=== PATIENT | female | born 1950 | race Hispanic/Latino ===

== ENCOUNTER 2017-09-14 12:22 | Outpatient (CLI) | payer MEDICARE | END 2017-09-14 12:23 | disposition home or self-care (01) | LOC: BICMAMMO 12:22 | PROVIDERS: ATTEND Family Medicine | DX: Z12.31 Encounter for screening mammogram for malignant neoplasm of breast (principal); Z80.3 Family history of malignant neoplasm of breast | CPT/HCPCS: 77063; 77067 ==

== ENCOUNTER 2018-09-03 15:36 | Emergency (ER) | payer MEDICARE ==
[2018-09-03] MEDS ORDERED: Ketorolac Tromethamine 30 MG/ML VIAL ONE (16:30)
[2018-09-03] MEDS ORDERED: Lorazepam 2 MG/ML VIAL ONE (16:30)
[2018-09-03] MEDS ORDERED: Fentanyl 100 MCG/2 ML VIAL ONE (16:30)
--- NOTE | 2018-09-03 16:54 | CT ---
CT ABDOMEN AND PELVIS WITHOUT CONTRAST 09/03/18 HISTORY: Abdominal pain and leg pain. COMPARISON: CT 11/12/15. FINDINGS: Lung bases are clear. No pericardial effusion. There is a large gallstone within the lower gallbladde r body. Hepatic cyst in the gallbladder fossa is similar. There is no nephroureterolithiasis or hydroureteronephrosis. No secondary evidence of a recently pass ed stone. Noncontrast evaluation of the spleen and pancreas as well as the adrenal glands are unremarkable. The re are no dilated loops of large or small bowel. No retroperitoneal adenopathy. Advanced facet arthropathy lower lumbar spine. No acute osseous abnormality. IMPRESSION: 1. No nephroureterolithiasis or hydroureteronephrosis. No secondary evidence of recently passed stone. 2. No acute inflammatory process within the abdomen or pelvis. POS: HARI
[2018-09-03 17:07] LABS: #Eosinphils 0.1 thou/uL (0.0-0.7); #Lymphocytes 1.1 thou/uL (1.20-3.40); #Monocytes 0.4 thou/uL (0.11-0.59); #Neutrophils 4.8 thou/uL (1.40-6.50); %Basophils 0.5 % (0.0-1.0); %Eosinophils 1.6 % (0.0-10.0); %Lymphocytes 17.6 % (21.0-51.0); %Monocytes 5.6 % (0.0-10.0); %Neutrophils 74.7 % (42.0-75.0); Hemoglobin 13.5 g/dL (12.0-16.0); Mean Corpuscular HGB CONC 32.1 g/dL (32.0-36.0); Mean Corpuscular Hemoglobin 26.2 pg (27.0-31.0); Mean Corpuscular Volume 81.8 fL (78.0-98.0); Mean Platelet Volume 8.8 fL (7.4-10.4); Platelet Count 165 thou/uL (130-400); RBC Distribution Width 12.9 % (11.5-14.5); Red Blood Cell (RBC) Count 5.13 mill/uL (4.20-5.40); White Blood Cell (WBC) Count 6.4 thou/uL (4.8-10.8)
[2018-09-03 17:28] LABS: ALT (SGPT) 13 U/L (8-55); AST (SGOT) 14 U/L (5-34); Albumin 4.1 g/dL (3.4-4.8); Alkaline Phosphatase 123 U/L (40-150); Anion Gap 14 mmol/L (10-20); BUN (Urea Nitrogen) 16 mg/dL (9.8-20.1); Bilirubin, Total 0.7 mg/dL (0.2-1.2); Calc. Creatinine Clearance 0 mL/min (70-130); Calcium 9.1 mg/dL (7.8-10.44); Carbon Dioxide 20 mmol/L (23-31); Chloride 108 mmol/L (98-107); Estimated GFR-MDRD 67; Globulin 3.3 g/dL (2.4-3.5); Glucose 103 mg/dL (80-115); Lipase 9 U/L (8-78); Potassium 4.2 mmol/L (3.5-5.1); Protein, Total 7.4 g/dL (6.0-8.3); Sodium 138 mmol/L (136-145)
--- NOTE | 2018-09-03 17:31 | ULT ---
ULTRASOUND LEFT LOWER EXTREMITY VENOUS DOPPLER: 09/03/18 HISTORY: Lower extremity pain and edema. COMPARISON: Doppler 11/11/15. FINDINGS: Real time pedraza scale, color doppler and spectral analysis of the left lower extremity venous system w as performed. The common femoral, femoral, proximal portion of the greater saphenous and deep femoral veins as well as the popliteal and posterior tibial veins are interrogated. Poor visualization of posterior tibial veins. Remainder of the veins have normal flow, augmentation a nd compression. IMPRESSION: No deep venous thrombosis. POS: HARI
[2018-09-03] MEDS ORDERED: Dexamethasone 4 mg/ml Vial ONE (17:42)
== END 2018-09-03 18:23 | disposition home or self-care (01) ==
LOC: ERS 15:36
DX: M54.10 Radiculopathy, site unspecified (principal); I10 Essential (primary) hypertension
CPT/HCPCS: 36415; 74176; 80053; 83690; 85025; 93005; 96374; 96375; J1100; J1885; J2060; J3010

== ENCOUNTER 2018-10-13 09:56 | Outpatient (CLI) | payer MEDICARE ==
--- NOTE | 2018-10-17 13:25 | MMO ---
Bilateral MAMMO Bilat Screen [facility]. CLINICAL HISTORY: Patient is 68 years old and is seen for screening. The patient has the following family history of breast cancer: mother, at age 70 and cousin female. The patient has a history of other cancer in 2000. VIEWS: The views performed were: bilateral craniocaudal with tomosynthesis and bilateral mediolateral oblique with tomosynthesis. FILMS COMPARED: The present examination has been compared to prior imaging studies performed at [facility] on 08/07/2005, 12/31/2006, 04/23/2009, 04/29/2011, 06/30/2012, 04/12/2015, 05/04/2016 and 09/14/2017. MAMMOGRAM FINDINGS: There are scattered fibroglandular densities. There are new calcifications with grouped or clustered distribution seen in the posterior central region of the left breast. In the right breast, there are no suspicious masses, calcifications or areas of architectural distortion. IMPRESSION: NEW CALCIFICATIONS IN THE LEFT BREAST REQUIRE ADDITIONAL EVALUATION. MAGNIFICATION VIEWS ARE RECOMMENDED. THE RESULTS OF THIS EXAM WERE SENT TO THE PATIENT. ACR BI-RADS Category 0 - Incomplete: Need additional imaging evaluation. [facility] will notify the patient of the need for additional imaging services. MAMMOGRAPHY NOTE: 1. A negative mammogram report should not delay a biopsy if a dominant of clinically suspicious mass is present. 2. Approximately 10% to 15% of breast cancers are not detected by mammography. 3. Adenosis and dense breasts may obscure an underlying neoplasm.
== END 2018-10-13 09:57 | disposition home or self-care (01) ==
LOC: BICMAMMO 09:56
PROVIDERS: ATTEND Family Medicine
DX: Z12.31 Encounter for screening mammogram for malignant neoplasm of breast (principal); R92.1 Mammographic calcification found on diagnostic imaging of breast; Z80.3 Family history of malignant neoplasm of breast; Z85.89 Personal history of malignant neoplasm of other organs and systems
CPT/HCPCS: 77063; 77067

== ENCOUNTER 2018-10-18 11:13 | Outpatient (CLI) | payer MEDICARE ==
--- NOTE | 2018-10-19 16:26 | MMO ---
Left Breast MAMMO Unilat Diag [facility]. CLINICAL HISTORY: Patient is 68 years old and is seen for diagnostic exam. VIEWS: The views performed were: . FILMS COMPARED: The present examination has been compared to prior imaging studies performed at [facility] on 08/07/2005, 12/31/2006, 04/23/2009, 04/29/2011, 06/30/2012, 04/12/2015, 05/04/2016, 09/14/2017 and 10/03/2018. MAMMOGRAM FINDINGS: There are scattered fibroglandular densities. Exam is limited due to a left sided paralysis. The calcs are not well seen on ML views. Few calcs on the mag CC view appear benign. The others are probably benign. IMPRESSION: FINDING IN THE LEFT BREAST IS PROBABLY BENIGN. FOLLOW-UP IN 6 MONTHS IS RECOMMENDED. THE RESULTS OF THIS EXAM WERE SENT TO THE PATIENT. ACR BI-RADS Category 3 - Probably benign finding - short interval follow-up suggested. [facility] will notify the patient of the need for additional imaging services. MAMMOGRAPHY NOTE: 1. A negative mammogram report should not delay a biopsy if a dominant of clinically suspicious mass is present. 2. Approximately 10% to 15% of breast cancers are not detected by mammography. 3. Adenosis and dense breasts may obscure an underlying neoplasm.
== END 2018-10-18 11:14 | disposition home or self-care (01) ==
LOC: BICMAMMO 11:13
PROVIDERS: ATTEND Family Medicine
DX: R92.1 Mammographic calcification found on diagnostic imaging of breast (principal)
CPT/HCPCS: 77065; G0279

== ENCOUNTER 2019-07-14 09:40 | Outpatient (CLI) | payer MEDICARE ==
--- NOTE | 2019-07-14 11:14 | MMO ---
Left Breast MAMMO Unilat Diag [facility]. CLINICAL HISTORY: Patient is 69 years old and is seen for diagnostic exam. The patient has the following family history of breast cancer: mother, at age 70 and cousin female. The patient has a history of other cancer in 2000. VIEWS: The views performed were: left craniocaudal with tomosynthesis; left mediolateral oblique with tomosynthesis; and left mediolateral with tomosynthesis. FILMS COMPARED: The present examination has been compared to prior imaging studies performed at [facility] on 05/04/2016, 09/14/2017, 10/03/2018 and 10/18/2018. This study has been interpreted with the assistance of computer-aided detection. MAMMOGRAM FINDINGS: There are scattered fibroglandular densities. There are amorphous or indistinct and fine pleomorphic calcifications seen in the posterior central region of the left breast. IMPRESSION: CALCIFICATIONS IN THE LEFT BREAST ARE SUSPICIOUS. A STEREOTACTIC BREAST BIOPSY IS RECOMMENDED. THE PATIENT WILL FOLLOW UP CLINICALLY WITH DR. ASTUDILLO REGARDING FURTHER OPTIONS. STEREOTACTIC BIOPSY CAN BE SCHEDULED WITH THE [facility] MAMMOGRAPHY DEPARTMENT. THE RESULTS OF THIS EXAM WERE SENT TO THE PATIENT. ACR BI-RADS Category 4 - Suspicious abnormality - biopsy should be considered MAMMOGRAPHY NOTE: 1. A negative mammogram report should not delay a biopsy if a dominant of clinically suspicious mass is present. 2. Approximately 10% to 15% of breast cancers are not detected by mammography. 3. Adenosis and dense breasts may obscure an underlying neoplasm. Reported by: SHOBHA MCKEON MD Electonically Signed: [id number]
== END 2019-07-14 09:41 | disposition home or self-care (01) ==
LOC: BICMAMMO 09:40
PROVIDERS: ATTEND Family Medicine
DX: R92.8 Other abnormal and inconclusive findings on diagnostic imaging of breast (principal); R92.1 Mammographic calcification found on diagnostic imaging of breast
CPT/HCPCS: 77065; G0279

== ENCOUNTER → 2019-08-11 | Day surgery (SDC) | payer MEDICARE ==
[2019-08-10 14:17] VITALS: BMI 28.3
--- NOTE | 2019-08-11 14:51 | MMO ---
NEEDLE LOCALIZATION FOR SURGICAL EXCISIONAL BIOPSY OF LEFT BREAST CALCIFICATIONS: Date: 08/11/2019 HISTORY: Suspicious calcification left breast. COMPARISON: 09/28/2018 and 07/14/2019. FINDINGS/IMPRESSION: Unsuccessful needle localization of left breast calcifications. Given breast size, the calcifications could not be adequately reached with a 10 cm [place] needle in a CC approach. Therefore, the patient w ill be rescheduled for a needle localization with a 15 cm [place] needle and a medial approach should b e used. Results of study were conveyed to the patient, as well as Dr. Erwin, on 08/11/2019 at 1418 hours. CODE CR. POS: OFF
== END ==
LOC: SDC 07:03
PROVIDERS: ATTEND Surgery
PROC: 0HB5XZX Excision of Chest Skin, External Approach, Diagnostic (ICD-10-PCS; principal; 2019-08-11)
DX: R92.8 Other abnormal and inconclusive findings on diagnostic imaging of breast (principal)
CPT/HCPCS: 19281

== ENCOUNTER 2019-12-01 06:58 | Outpatient (CLI) | payer MEDICARE, OTHER ==
[2019-12-01 13:10] LABS: #Eosinphils 0.1 thou/uL (0.0-0.7); #Lymphocytes 1.1 thou/uL (1.20-3.40); #Monocytes 0.3 thou/uL (0.11-0.59); #Neutrophils 4.3 thou/uL (1.40-6.50); %Eosinophils 1.3 % (0.0-10.0); %Lymphocytes 18.5 % (21.0-51.0); %Monocytes 4.9 % (0.0-10.0); %Neutrophils 75.3 % (42.0-75.0); Hemoglobin 13.9 g/dL (12.0-16.0); Mean Corpuscular HGB CONC 31.5 g/dL (32.0-36.0); Mean Corpuscular Hemoglobin 25.6 pg (27.0-31.0); Mean Corpuscular Volume 81.2 fL (78.0-98.0); Platelet Count 164 thou/uL (130-400); RBC Distribution Width 13.9 % (11.5-14.5); Red Blood Cell (RBC) Count 5.44 mill/uL (4.20-5.40); White Blood Cell (WBC) Count 5.7 thou/uL (4.8-10.8)
[2019-12-01 13:32] LABS: Anion Gap 14 mmol/L (10-20); BUN (Urea Nitrogen) 10 mg/dL (9.8-20.1); Calc. Creatinine Clearance 0 mL/min (70-130); Calcium 8.9 mg/dL (7.8-10.44); Carbon Dioxide 23 mmol/L (23-31); Chloride 108 mmol/L (98-107); Estimated GFR-MDRD 70; Glucose 115 mg/dL (80-115); Potassium 3.8 mmol/L (3.5-5.1); Sodium 141 mmol/L (136-145)
[2019-12-01 18:22] LABS: SARS-CoV-2 MS2 Positive; SARS-CoV-2 N Gene Negative; SARS-CoV-2 S Gene Negative; SARS-CoV-2 orf1ab Negative
--- NOTE | 2019-12-03 16:37 | EKG ---
Test Reason : PREOP Blood Pressure : / mmHG Vent. Rate : 066 BPM Atrial Rate : 066 BPM P-R Int : 208 ms QRS Dur : 088 ms QT Int : 438 ms P-R-T Axes : 008 024 026 degrees QTc Int : 459 ms Normal sinus rhythm Normal ECG When compared with ECG of 03-SEP-2018 16:15, No significant change was found Confirmed by DINA LUNA (2) on 12/03/2019 4:36:46 PM Referred By: NANCY Confirmed By:DINA LUNA
== END 2019-12-01 06:59 | disposition home or self-care (01) ==
LOC: LABBT 06:58
PROVIDERS: ATTEND Surgery
DX: Z01.818 Encounter for other preprocedural examination (principal); Z11.59 Encounter for screening for other viral diseases; D05.12 Intraductal carcinoma in situ of left breast
CPT/HCPCS: 80048; 85025; 93005; U0003; 87635; 93010

== ENCOUNTER 2019-12-06 06:58 | Day surgery (SDC) | payer MEDICARE ==
[2019-12-06] MEDS ORDERED: Bupivacaine 0.25% HCL 30 ML VIAL ONE (09:28)
[2019-12-06] MEDS ORDERED: Lidocaine 1% w/Epinephrine 1:100K 20 ML VIAL ONE (09:28)
[2019-12-06] MEDS ORDERED: Fentanyl 100 MCG/2 ML VIAL ONE ×2 (09:33→11:32)
[2019-12-06] MEDS ORDERED: Famotidine/PF 20 mg/2ml Vial ONE (09:33)
--- NOTE | 2019-12-06 11:17 | MMO ---
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 TECHNIQUE: Signed informed consent obtained. Left breast placed in true lateral compression with fenestrated pad dle. Of the 2 postbiopsy clips, the more posteriorly and inferiorly located clip (cylindrical shaped) was targeted. Medial approach. Skin of medial breast prepared and draped in usual sterile fas hion. 25-gauge needle used to apply buffered lidocaine superficially and deeply. 12.5 cm 20-gauge [place] needle advanced. Breast then compressed in LCC projection. Wire deployed with needle left in pl stephanie. Patient tolerated procedure well. No complications. FINDINGS: Needle and wire position are in satisfactory location close to the targeted clip, at the far posterio r edge of the left breast. Subsequent specimen radiograph demonstrates the targeted clip. IMPRESSION: Successful mammographically guided left breast needle localization.
--- NOTE | 2019-12-06 11:18 | MMO ---
Radiograph surgical specimen: DATE: 12/06/2019 HISTORY: 69-year-old female with ductal carcinoma in situ of the left breast. FINDINGS: The specimen contains the targeted cylindrical postbiopsy clip and [place] wire. IMPRESSION: Successful surgical excisional biopsy.
[2019-12-06] MEDS ORDERED: Glycopyrrolate 0.2 MG/ML 5 ML SYRINGE ONE (11:27)
[2019-12-06] MEDS ORDERED: Succinylcholine Chloride 20 MG/ML 10 ml SYRINGE FS ONE (11:27)
[2019-12-06] MEDS ORDERED: Dexamethasone 20 MG/5 ML VIAL ONE (11:27)
[2019-12-06] MEDS ORDERED: Ketorolac Tromethamine 30 MG/ML VIAL ONE (11:27)
[2019-12-06] MEDS ORDERED: Metoclopramide HCl 10 MG/2 ML VIAL ONE (11:27)
[2019-12-06] MEDS ORDERED: Lidocaine 1% PF 5 ML VIAL ONE (11:27)
[2019-12-06] MEDS ORDERED: PROPOFOL 200 MG/20 ML VIAL ONE (11:27)
[2019-12-06] MEDS ORDERED: Ondansetron PF 4 MG/2 ML Vial ONE (11:27)
[2019-12-06] MEDS ORDERED: HYDROcodone/Acetaminophen 5/325 mg Tablet ONE (14:24)
--- NOTE | 2019-12-08 11:54 | PDOC.OP ---
Operative Note - Operative Note Operative Note: PROCEDURE: Left breast needle localized excisional biopsy SURGEON: Theo Erwin M.D. DATE: 12/06/2019 PREOPERATIVE DIAGNOSIS: Ductal carcinoma in situ of the left breast POSTOPERATIVE DIAGNOSIS: Ductal carcinoma in situ of the left breast HISTORY: Patient with an abnormal mammogram. She was referred to another center for stereotactic biopsy due to positioning difficulties due to hemiplegia resulting from a past stroke. This revealed DCIS and needle localized excisional biopsy was recommended. An extra long needle localization device had to be ordered due to the position very deep in the central breast. PROCEDURE IN DETAIL: After informed consent was obtained the patient was taken to the operating room and placed in the supine position. General anesthesia was administered and the patient was positioned, prepped and draped. The needle localization mammograms had been reviewed preoperatively with the radiologist, and the biopsy clip in question was located deep in the central posterior breast just anterior to the wire. The wire was hubbed at 11 cm at the skin, traveling from medial to lateral. Local anesthesia was infused to the skin and subcutaneous tissues overlying the central area of the wire and dissection carried down to the wire which was then identified at the 5 cm catherine. Dissection was then carried out around the distal end of the wire, leaving a generous anterior margin. At no point during the dissection was the distal wire exposed. The specimen was resected and marked for orientation with a long medial, short superior, and looped superficial suture. The specimen was sent to radiology and the clip was confirmed to be within the specimen. The wound was irrigated and hemostasis obtained using Bovie electrocautery. Additional local anesthesia was infused circumferentially for postoperative pain control. The subcutaneous tissues were reapproximated with a running 3-0 Monocryl suture and additional local anesthesia infused into the biopsy cavity. The skin was then closed with a running 4-0 subcuticular Monocryl suture. Dermabond dressings were placed to both incisions and once this was dry, fluffs compression dressings were placed and secured to the skin with tape. The patient was extubated and taken to the recovery room in good condition. Estimated blood loss was minimal. There were no complications. Specimen is left breast mass.
== END 2019-12-06 15:16 | disposition home or self-care (01) ==
LOC: SDC 06:58 → EEVIPCON 11:30 → SDC 15:16
PROVIDERS: ATTEND Surgery
PROC: 0H9U3ZX Drainage of Left Breast, Percutaneous Approach, Diagnostic (ICD-10-PCS; principal; 2019-12-06)
DX: D05.12 Intraductal carcinoma in situ of left breast (principal); I10 Essential (primary) hypertension; E78.00 Pure hypercholesterolemia, unspecified; Z79.899 Other long term (current) drug therapy
CPT/HCPCS: 19281; 76098; 88307; J0690; J1100; J1885; J2001; J2405; J2704; J2765; J3010; S0020; S0028

== ENCOUNTER 2020-09-26 09:21 | Outpatient (CLI) | payer MEDICARE | END 2020-09-26 09:22 | disposition home or self-care (01) | LOC: BICMAMMO 09:21 | PROVIDERS: ATTEND Surgery | DX: Z09 Encounter for follow-up examination after completed treatment for conditions other than malignant neoplasm (principal); Z86.000 Personal history of in-situ neoplasm of breast | CPT/HCPCS: 77066; G0279 ==

== ENCOUNTER 2021-10-24 08:05 | Outpatient (CLI) | payer MEDICARE | END 2021-10-24 08:06 | disposition home or self-care (01) | LOC: BICMAMMO 08:05 | PROVIDERS: ATTEND Surgery | DX: D05.12 Intraductal carcinoma in situ of left breast (principal) | CPT/HCPCS: 77066; G0279 ==

== ENCOUNTER 2022-06-01 10:19 | Outpatient (CLI) | payer MEDICARE, OTHER | END 2022-06-01 10:20 | disposition home or self-care (01) | LOC: BICMAMMO 10:19 | PROVIDERS: ATTEND Internal Medicine Hematology & Oncology | DX: Z13.820 Encounter for screening for osteoporosis (principal); C50.812 Malignant neoplasm of overlapping sites of left female breast; T38.6X5A Adverse effect of antigonadotrophins, antiestrogens, antiandrogens, not elsewhere classified, initial encounter; M85.89 Other specified disorders of bone density and structure, multiple sites | CPT/HCPCS: 77080 ==

== ENCOUNTER 2023-03-02 09:22 | Outpatient (CLI) | payer OTHER | END 2023-03-02 09:23 | disposition home or self-care (01) | LOC: ULT 09:22 | PROVIDERS: ATTEND Family Medicine | DX: I80.202 Phlebitis and thrombophlebitis of unspecified deep vessels of left lower extremity (principal) ==

== ENCOUNTER 2023-06-13 22:13 | Inpatient (IN) | payer OTHER ==
[2023-06-13 23:54] LABS: SARS-CoV-2 NAA Rapid Test Not Detected (NotDetected)
[2023-06-14 00:07] LABS: Hematocrit 40.8 % (36.0-47.0); Hemoglobin 12.7 g/dL (12.0-16.0); Mean Corpuscular HGB CONC 31.1 g/dL (32.0-36.0); Mean Corpuscular Hemoglobin 24.7 pg (27.0-31.0); Mean Corpuscular Volume 79.2 fl (78.0-98.0); Mean Platelet Volume 11.3 fL (7.4-10.4); Platelet Count 152 10x3/uL (130-400); RBC Distribution Width 15.5 % (11.5-14.5); Red Blood Cell (RBC) Count 5.15 mill/uL (4.20-5.40); White Blood Cell (WBC) Count 9.6 10x3/uL (4.8-10.8)
[2023-06-14 00:10] LABS: Delete Auto Diff?? YES; Manual Diff?? YES
[2023-06-14 00:30] LABS: ALT (SGPT) 97 U/L (8-55); AST (SGOT) 132 U/L (5-34); Albumin 3.4 g/dL (3.4-4.8); Alkaline Phosphatase 79 U/L (40-110); Anion Gap 17 mmol/L (10-20); BUN (Urea Nitrogen) 32 mg/dL (9.8-20.1); Calc. Creatinine Clearance 0 mL/min (70-130); Calcium 8.7 mg/dL (7.8-10.44); Carbon Dioxide 16 mmol/L (23-31); Chloride 106 mmol/L (98-107); Estimated GFR 32; Globulin 4.2 g/dL (2.4-3.5); Glucose 143 mg/dL (83-110); Potassium 3.2 mmol/L (3.5-5.1); Protein, Total 7.6 g/dL (5.8-8.1); Sodium 136 mmol/L (136-145)
[2023-06-14 00:34] LABS: Band 34 % (5-11); CellaVision Operator ID lab.abc; Eosinophils 1 % (0-10); Large Platelets 1.9 % (0-5); Lymphocytes 5 % (21-51); Metamyelocyte 3 % (0-0); Monocytes 3 % (0-10); Neutrophil 55 % (42-75); Platelet Adequacy Comment Platelets Normal; RBC Morphology Within Normal Limits; Smudge Cells 11.5 %; Total Cell Count 104
[2023-06-14] MEDS ORDERED: Furosemide 40 MG/4 ML VIAL ONE (00:58)
[2023-06-14] MEDS ORDERED: Sodium Chloride 0.9% 100 ML ONE (01:10)
[2023-06-14] MEDS ORDERED: Cefepime 2 GM VIAL ONE (01:10)
[2023-06-14 01:11] LABS: Troponin I 0.995 ng/mL (< 0.028)
[2023-06-14] MEDS ORDERED: Vancomycin (BATCH) 1.5 GM in Premix 1 BAG IVPB SCH (01:30)
[2023-06-14] MEDS ORDERED: Ondansetron ODT 4 MG TAB SL PRN (01:45)
[2023-06-14] MEDS ORDERED: Ondansetron PF 4 MG/2 ML Vial IVP PRN (01:45)
[2023-06-14] MEDS ORDERED: Acetaminophen 325 MG TAB PO PRN (01:45)
[2023-06-14] MEDS ORDERED: Calcium Carbonate 500 MG ChewTAB PO PRN (01:59)
[2023-06-14] MEDS ORDERED: Senokot S 8.6-50 MG TAB PO PRN (01:59)
[2023-06-14] MEDS ORDERED: Potassium Chloride 20 MEQ TAB PO SCH (02:00)
[2023-06-14] MEDS ORDERED: Aspirin Chewable 81 MG TAB ONE (02:13)
[2023-06-14 02:35] LABS: Magnesium 1.6 mg/dL (1.6-2.6)
[2023-06-14 02:57] LABS: Bacteria/HPF 4+ HPF (None Seen); Bilirubin Negative (Negative); Blood, Urine 1+ (Negative); CAUTI Indications for Culture Dysuria,urgency,freq; Clarity Turbid (Clear); Glucose, Urine (Dipstick) Normal (Negative); Ketone, Urine Negative (Negative); Leukocyte 250 Leu/uL (Negative); Nitrite Negative (Negative); Protein, Urine (Dipstick) 10 mg/dL (Neg-Trace); RBC/HPF 0-3 HPF (0-3); Specific Gravity, Urine 1.016 (1.002-1.036); Squamous Epithelial 0-3 HPF (0-3); Urobilinogen Normal mg/dL (Less than 2)
[2023-06-14 02:58] LABS: Urine Culture Reflex Yes Yes
[2023-06-14] MEDS ORDERED: Magnesium 2 GM/50 ML(in water) 2 GM in Premix 1 BAG IVPB SCH (03:00)
[2023-06-14 03:03] LABS: Actual Bicarbonate (HCO3v) 16.8 mEq/L (22-28); Base Excess -7.2 mEq/L (-2.0 to +3.0); Calcium, Ionized (venous) 1.04 mmol/L (1.16-1.32); Chloride (VBG) 105 mmol/L (98-106); Hematocrit-VBG 37 % (36.0-47.0); Hemoglobin (Hb) 12.7 g/dL (11.7-16.1); Potassium (VBG) 3.23 mmol/L (3.70-5.30); Sodium 136 mmol/L (133-146); pH (venous) 7.372 (7.32-7.43)
[2023-06-14 03:46] LABS: Critical Call Chem Troponin I RESULT DECREASING; Troponin I 0.884 ng/mL (< 0.028)
[2023-06-14] MEDS: Lactated Ringer's 1,000 ML IV SCH ×3 (04:04→18:00)
[2023-06-14 06:31] LABS: Lactic Acid 3.5 mmol/L (0.5-2.2)
[2023-06-14 06:50] LABS: Hematocrit 35.9 % (36.0-47.0); Hemoglobin 11.5 g/dL (12.0-16.0); Mean Corpuscular Hemoglobin 24.9 pg (27.0-31.0); Mean Corpuscular Volume 77.9 fl (78.0-98.0); Mean Platelet Volume 11.1 fL (7.4-10.4); Platelet Count 145 10x3/uL (130-400); RBC Distribution Width 15.5 % (11.5-14.5); Red Blood Cell (RBC) Count 4.61 mill/uL (4.20-5.40); White Blood Cell (WBC) Count 10.4 10x3/uL (4.8-10.8)
[2023-06-14 06:51] LABS: Delete Auto Diff?? YES; Manual Diff?? YES
[2023-06-14 07:18] LABS: ALT (SGPT) 78 U/L (8-55); AST (SGOT) 100 U/L (5-34); Albumin 2.9 g/dL (3.4-4.8); Alkaline Phosphatase 65 U/L (40-110); Anion Gap 15 mmol/L (10-20); BUN (Urea Nitrogen) 36 mg/dL (9.8-20.1); Bilirubin, Total 0.8 mg/dL (0.2-1.2); Calc. Creatinine Clearance 46 mL/min (70-130); Calcium 8.3 mg/dL (7.8-10.44); Carbon Dioxide 19 mmol/L (23-31); Chloride 106 mmol/L (98-107); Cholesterol 110 mg/dl (< 200 Desired); Estimated GFR 33; Globulin 3.6 g/dL (2.4-3.5); Glucose 123 mg/dL (83-110); HDL Cholesterol 37 mg/dL (>60 Neg Risk); LDL Cholesterol, Calculated 42 mg/dL; Magnesium 2.7 mg/dL (1.6-2.6); Potassium 3.1 mmol/L (3.5-5.1); Protein, Total 6.5 g/dL (5.8-8.1); Sodium 137 mmol/L (136-145); Triglycerides 157 mg/dL (Less than 150)
[2023-06-14 07:23] LABS: Band 52 % (5-11); CellaVision Operator ID LAB.GE; Large Platelets 3.9 % (0-5); Lymphocytes 4 % (21-51); Macrocytosis SLIGHT = 6-15 cells HPF (0-5); Metamyelocyte 12 % (0-0); Monocytes 5 % (0-10); Neutrophil 28 % (42-75); Ovalocytes SLIGHT = 2-5 cells HPF (0-1); Platelet Adequacy Comment Platelets Normal; Polychromasia SLIGHT = 2-3 cells HPF (0-2); Total Cell Count 103; Vacuoles SLIGHT
[2023-06-14 08:08] LABS: Troponin I 0.672 ng/mL (< 0.028)
[2023-06-14] MEDS ORDERED: FLU VACC QS2023(65UP)/MF59C/PF 60 MCG/0.5 ML SYRINGE IM ONE (09:00)
[2023-06-14] MEDS: NIFEdipine XL 60 MG ER.TAB PO SCH (10:38)
[2023-06-14] MEDS: Anastrozole 1 MG TAB PO SCH (10:38)
[2023-06-14] MEDS: Atenolol 50 MG TAB PO SCH (10:38)
[2023-06-14] MEDS: Aspirin Chewable 81 MG TAB PO SCH (10:38)
[2023-06-14] MEDS: Atorvastatin Calcium 20 MG TAB PO SCH (10:38)
[2023-06-14] MEDS: Cefepime 2 GM in Sodium Chloride 0.9% 100 ML IVPB SCH (12:40)
[2023-06-15] MEDS: Cefepime 2 GM in Sodium Chloride 0.9% 100 ML IVPB SCH (00:10)
[2023-06-15] MEDS: Lactated Ringer's 1,000 ML IV SCH ×2 (02:56→16:07)
[2023-06-15] MEDS ORDERED: Vancomycin 1 GM in Premix 1 BAG IVPB SCH (03:00)
[2023-06-15 04:36] LABS: Hematocrit 31.8 % (36.0-47.0); Hemoglobin 10.3 g/dL (12.0-16.0); Mean Corpuscular HGB CONC 32.4 g/dL (32.0-36.0); Mean Corpuscular Hemoglobin 24.8 pg (27.0-31.0); Mean Corpuscular Volume 76.6 fl (78.0-98.0); Platelet Count 109 10x3/uL (130-400); RBC Distribution Width 15.7 % (11.5-14.5); Red Blood Cell (RBC) Count 4.15 mill/uL (4.20-5.40); White Blood Cell (WBC) Count 12.8 10x3/uL (4.8-10.8)
[2023-06-15 05:11] LABS: ALT (SGPT) 55 U/L (8-55); AST (SGOT) 57 U/L (5-34); Albumin 2.6 g/dL (3.4-4.8); Alkaline Phosphatase 70 U/L (40-110); Anion Gap 13 mmol/L (10-20); BUN (Urea Nitrogen) 37 mg/dL (9.8-20.1); Bilirubin, Total 0.9 mg/dL (0.2-1.2); Calc. Creatinine Clearance 63 mL/min (70-130); Calcium 8.3 mg/dL (7.8-10.44); Carbon Dioxide 17 mmol/L (23-31); Chloride 109 mmol/L (98-107); Estimated GFR 47; Globulin 3.7 g/dL (2.4-3.5); Glucose 123 mg/dL (83-110); Magnesium 2.3 mg/dL (1.6-2.6); Potassium 3.5 mmol/L (3.5-5.1); Protein, Total 6.3 g/dL (5.8-8.1); Sodium 135 mmol/L (136-145)
[2023-06-15 05:30] LABS: Delete Auto Diff?? YES; Manual Diff?? YES
[2023-06-15 06:28] LABS: Band 33 % (5-11); CellaVision Operator ID LAB.GE; Dohle Bodies SLIGHT; Lymphocytes 4 % (21-51); Microcytosis SLIGHT = 6-15 cells HPF (0-5); Neutrophil 63 % (42-75); Ovalocytes SLIGHT = 2-5 cells HPF (0-1); Platelet Adequacy Comment Platelets Decreased; Polychromasia SLIGHT = 2-3 cells HPF (0-2); Total Cell Count 103
[2023-06-15] MEDS: Aspirin Chewable 81 MG TAB PO SCH (10:06)
[2023-06-15] MEDS: Atenolol 50 MG TAB PO SCH (10:06)
[2023-06-15] MEDS: Atorvastatin Calcium 20 MG TAB PO SCH (10:07)
[2023-06-15] MEDS: Anastrozole 1 MG TAB PO SCH (10:07)
[2023-06-15] MEDS: NIFEdipine XL 60 MG ER.TAB PO SCH (10:07)
[2023-06-15] MEDS: Cefepime 1 GM in Sodium Chloride 0.9% 100 ML IVPB SCH (12:34)
[2023-06-15] MEDS: Sacubitril 24MG/Valsartan 26 MG TAB PO SCH (20:15)
[2023-06-16] MEDS: Cefepime 1 GM in Sodium Chloride 0.9% 100 ML IVPB SCH ×2 (01:35→15:01)
[2023-06-16 02:19] LABS: Hematocrit 29.7 % (36.0-47.0); Hemoglobin 9.8 g/dL (12.0-16.0); Mean Corpuscular Hemoglobin 25.1 pg (27.0-31.0); Mean Platelet Volume 12.4 fL (7.4-10.4); Platelet Count 97 10x3/uL (130-400); RBC Distribution Width 15.6 % (11.5-14.5); Red Blood Cell (RBC) Count 3.91 mill/uL (4.20-5.40); White Blood Cell (WBC) Count 14.8 10x3/uL (4.8-10.8)
[2023-06-16 02:26] LABS: Delete Auto Diff?? YES; Manual Diff?? YES
[2023-06-16 02:37] LABS: Vancomycin, Trough 8.1 ug/mL
[2023-06-16 02:48] LABS: Band 1 % (5-11); CellaVision Operator ID lab.abc; Lymphocytes 3 % (21-51); Microcytosis SLIGHT = 6-15 cells HPF (0-5); Monocytes 4 % (0-10); Neutrophil 92 % (42-75); Platelet Adequacy Comment Platelets Decreased; Smudge Cells 13.7 %; Total Cell Count 102
[2023-06-16] MEDS: Vancomycin (BATCH) 1.5 GM in Premix 1 BAG IVPB SCH (03:01)
[2023-06-16 03:10] LABS: ALT (SGPT) 40 U/L (8-55); AST (SGOT) 37 U/L (5-34); Albumin 2.2 g/dL (3.4-4.8); Alkaline Phosphatase 82 U/L (40-110); Anion Gap 14 mmol/L (10-20); BUN (Urea Nitrogen) 32 mg/dL (9.8-20.1); Bilirubin, Total 1.1 mg/dL (0.2-1.2); Calc. Creatinine Clearance 82 mL/min (70-130); Carbon Dioxide 17 mmol/L (23-31); Chloride 106 mmol/L (98-107); Estimated GFR 63; Globulin 3.7 g/dL (2.4-3.5); Glucose 135 mg/dL (83-110); Magnesium 2.3 mg/dL (1.6-2.6); Potassium 3.1 mmol/L (3.5-5.1); Protein, Total 5.9 g/dL (5.8-8.1); Sodium 134 mmol/L (136-145)
[2023-06-16] MEDS: Lactated Ringer's 1,000 ML IV SCH (06:25)
[2023-06-16] MEDS ORDERED: Potassium Chloride 20 MEQ TAB PO SCH (07:00)
[2023-06-16] MEDS: Atorvastatin Calcium 20 MG TAB PO SCH (09:15)
[2023-06-16] MEDS: Sacubitril 24MG/Valsartan 26 MG TAB PO SCH ×2 (09:15→21:36)
[2023-06-16] MEDS: Aspirin Chewable 81 MG TAB PO SCH (09:15)
[2023-06-16] MEDS: Anastrozole 1 MG TAB PO SCH (09:15)
[2023-06-16] MEDS: Aquaphor 3.5 oz 99 GM JAR TOP SCH (09:16)
[2023-06-17] MEDS: Cefepime 1 GM in Sodium Chloride 0.9% 100 ML IVPB SCH (00:25)
[2023-06-17] MEDS: Vancomycin (BATCH) 1.5 GM in Premix 1 BAG IVPB SCH (03:10)
[2023-06-17 04:25] LABS: Hematocrit 29.2 % (36.0-47.0); Hemoglobin 9.6 g/dL (12.0-16.0); Mean Corpuscular HGB CONC 32.9 g/dL (32.0-36.0); Mean Corpuscular Hemoglobin 24.6 pg (27.0-31.0); Mean Corpuscular Volume 74.9 fl (78.0-98.0); RBC Distribution Width 15.9 % (11.5-14.5); White Blood Cell (WBC) Count 13.3 10x3/uL (4.8-10.8)
[2023-06-17 04:44] LABS: ALT (SGPT) 42 U/L (8-55); AST (SGOT) 65 U/L (5-34); Alkaline Phosphatase 94 U/L (40-110); Anion Gap 11 mmol/L (10-20); BUN (Urea Nitrogen) 26 mg/dL (9.8-20.1); Bilirubin, Total 1.1 mg/dL (0.2-1.2); Calc. Creatinine Clearance 107 mL/min (70-130); Calcium 7.9 mg/dL (7.8-10.44); Carbon Dioxide 18 mmol/L (23-31); Chloride 109 mmol/L (98-107); Estimated GFR 84; Globulin 3.5 g/dL (2.4-3.5); Glucose 139 mg/dL (83-110); Magnesium 2.2 mg/dL (1.6-2.6); Potassium 3.2 mmol/L (3.5-5.1); Protein, Total 5.5 g/dL (5.8-8.1); Sodium 135 mmol/L (136-145)
[2023-06-17 04:49] LABS: Delete Auto Diff?? YES; Manual Diff?? YES; Platelet Count 87 10x3/uL (130-400)
[2023-06-17 06:37] LABS: Anisocytosis SLIGHT = 6-15 cells HPF (0-5); Band 10 % (5-11); Burr Cells SLIGHT = 2-5 cells HPF (0-1); CellaVision Operator ID LAB.JMM; Lymphocytes 5 % (21-51); Macrocytosis SLIGHT = 6-15 cells HPF (0-5); Monocytes 3 % (0-10); Neutrophil 82 % (42-75); Platelet Adequacy Comment Platelets Decreased; Polychromasia SLIGHT = 2-3 cells HPF (0-2); Total Cell Count 100
[2023-06-17] MEDS ORDERED: Potassium Chloride 20 MEQ TAB PO SCH (07:15)
[2023-06-17] MEDS: Aspirin Chewable 81 MG TAB PO SCH (08:52)
[2023-06-17] MEDS: Anastrozole 1 MG TAB PO SCH (08:52)
[2023-06-17] MEDS: Empagliflozin 10 MG TAB PO SCH (08:52)
[2023-06-17] MEDS: Sacubitril 24MG/Valsartan 26 MG TAB PO SCH ×2 (08:53→20:56)
[2023-06-17] MEDS: Atorvastatin Calcium 20 MG TAB PO SCH (08:53)
[2023-06-17] MEDS: Aquaphor 3.5 oz 99 GM JAR TOP SCH ×2 (09:02→15:48)
[2023-06-17] MEDS: Linezolid 600 MG TAB PO SCH ×2 (09:05→20:56)
[2023-06-17] MEDS: Cefdinir 300 MG CAP PO SCH ×2 (09:05→20:56)
[2023-06-18 05:04] LABS: Hematocrit 29.5 % (36.0-47.0); Hemoglobin 9.6 g/dL (12.0-16.0); Mean Corpuscular HGB CONC 32.5 g/dL (32.0-36.0); Mean Corpuscular Hemoglobin 24.4 pg (27.0-31.0); Mean Corpuscular Volume 74.9 fl (78.0-98.0); Mean Platelet Volume 12.1 fL (7.4-10.4); Platelet Count 129 10x3/uL (130-400); RBC Distribution Width 15.9 % (11.5-14.5); Red Blood Cell (RBC) Count 3.94 mill/uL (4.20-5.40); White Blood Cell (WBC) Count 15.4 10x3/uL (4.8-10.8)
[2023-06-18 05:05] LABS: Delete Auto Diff?? YES; Manual Diff?? YES
[2023-06-18 05:24] LABS: ALT (SGPT) 101 U/L (8-55); AST (SGOT) 178 U/L (5-34); Albumin 2.2 g/dL (3.4-4.8); Alkaline Phosphatase 155 U/L (40-110); Anion Gap 10 mmol/L (10-20); BUN (Urea Nitrogen) 15 mg/dL (9.8-20.1); Calc. Creatinine Clearance 125 mL/min (70-130); Carbon Dioxide 20 mmol/L (23-31); Chloride 110 mmol/L (98-107); Estimated GFR 93; Globulin 3.4 g/dL (2.4-3.5); Glucose 112 mg/dL (83-110); Protein, Total 5.6 g/dL (5.8-8.1); Sodium 137 mmol/L (136-145)
[2023-06-18 05:56] LABS: Anisocytosis SLIGHT = 6-15 cells HPF (0-5); Band 2 % (5-11); Burr Cells SLIGHT = 2-5 cells HPF (0-1); CellaVision Operator ID lab.sh2; Eosinophils 2 % (0-10); Lymphocytes 13 % (21-51); Microcytosis SLIGHT = 6-15 cells HPF (0-5); Monocytes 1 % (0-10); Neutrophil 82 % (42-75); Ovalocytes MODERATE= 6-15 cells HPF (0-1); Platelet Adequacy Comment Platelets Decreased; Poikilocytosis SLIGHT = 6-15 cells HPF (0-5); Polychromasia SLIGHT = 2-3 cells HPF (0-2); Smudge Cells 12.1 %; Total Cell Count 99; Toxic Granulation SLIGHT
[2023-06-18] MEDS ORDERED: Potassium Chloride 20 MEQ TAB PO SCH (06:45)
[2023-06-18] MEDS: Anastrozole 1 MG TAB PO SCH (09:09)
[2023-06-18] MEDS: Sacubitril 24MG/Valsartan 26 MG TAB PO SCH ×3 (09:13→20:14)
[2023-06-18] MEDS: Linezolid 600 MG TAB PO SCH ×2 (09:14→20:14)
[2023-06-18] MEDS: Cefdinir 300 MG CAP PO SCH ×2 (09:15→20:14)
[2023-06-18] MEDS: Aquaphor 3.5 oz 99 GM JAR TOP SCH (09:15)
[2023-06-18] MEDS: Empagliflozin 10 MG TAB PO SCH (09:15)
[2023-06-18] MEDS: Atorvastatin Calcium 20 MG TAB PO SCH (09:15)
[2023-06-18] MEDS: Aspirin Chewable 81 MG TAB PO SCH (09:15)
[2023-06-18] MEDS ORDERED: Spironolactone 25 MG TAB PO SCH (09:45)
[2023-06-19 05:04] LABS: Hematocrit 30.6 % (36.0-47.0); Hemoglobin 9.8 g/dL (12.0-16.0); Mean Corpuscular Hemoglobin 24.1 pg (27.0-31.0); Mean Corpuscular Volume 75.2 fl (78.0-98.0); Platelet Count 203 10x3/uL (130-400); RBC Distribution Width 15.9 % (11.5-14.5); Red Blood Cell (RBC) Count 4.07 mill/uL (4.20-5.40); White Blood Cell (WBC) Count 14.6 10x3/uL (4.8-10.8)
[2023-06-19 05:10] LABS: Delete Auto Diff?? YES; Manual Diff?? YES
[2023-06-19] MEDS ORDERED: Calcium Carbonate 500 MG ChewTAB PO SCH (05:30)
[2023-06-19 05:38] LABS: Band 1 % (5-11); CellaVision Operator ID LAB.CLH1; Elliptocytes SLIGHT = 2-5 cells HPF (0-1); Eosinophils 2 % (0-10); Hypochromia SLIGHT = 6-15 cells HPF (0-5); Lymphocytes 17 % (21-51); Macrocytosis SLIGHT = 6-15 cells HPF (0-5); Monocytes 4 % (0-10); Neutrophil 74 % (42-75); Platelet Adequacy Comment Platelets Normal; Polychromasia MODERATE = 3-4 cells HPF (0-2); Reactive Lymphocytes 2 % (0-10); Target Cells SLIGHT = 2-5 cells HPF (0-1); Total Cell Count 100
[2023-06-19 05:43] LABS: ALT (SGPT) 73 U/L (8-55); AST (SGOT) 86 U/L (5-34); Alkaline Phosphatase 165 U/L (40-110); Anion Gap 12 mmol/L (10-20); BUN (Urea Nitrogen) 12 mg/dL (9.8-20.1); Bilirubin, Total 0.7 mg/dL (0.2-1.2); Calc. Creatinine Clearance 132 mL/min (70-130); Calcium 7.9 mg/dL (7.8-10.44); Carbon Dioxide 20 mmol/L (23-31); Chloride 109 mmol/L (98-107); Estimated GFR 94; Globulin 3.7 g/dL (2.4-3.5); Glucose 98 mg/dL (83-110); Magnesium 1.8 mg/dL (1.6-2.6); Potassium 3.3 mmol/L (3.5-5.1); Protein, Total 5.7 g/dL (5.8-8.1); Sodium 138 mmol/L (136-145)
[2023-06-19] MEDS: Ibuprofen 600 MG TAB PO PRN ×2 (05:45→16:50)
[2023-06-19] MEDS ORDERED: Lidocaine 2% Viscous Solution 10 ML, Aluminum & Magnesium Hydroxide 30 ML SSW SCH (06:00)
[2023-06-19] MEDS ORDERED: Potassium Chloride 20 MEQ TAB PO SCH (07:00)
[2023-06-19] MEDS: Empagliflozin 10 MG TAB PO SCH (08:18)
[2023-06-19] MEDS: Sacubitril 24MG/Valsartan 26 MG TAB PO SCH ×2 (08:18→20:51)
[2023-06-19] MEDS: Spironolactone 25 MG TAB PO SCH (08:18)
[2023-06-19] MEDS: Aspirin Chewable 81 MG TAB PO SCH (08:19)
[2023-06-19] MEDS: Cefdinir 300 MG CAP PO SCH ×2 (08:19→20:51)
[2023-06-19] MEDS: Anastrozole 1 MG TAB PO SCH (08:19)
[2023-06-19] MEDS: Atorvastatin Calcium 20 MG TAB PO SCH (08:19)
[2023-06-19] MEDS: Aquaphor 3.5 oz 99 GM JAR TOP SCH (08:19)
[2023-06-19] MEDS: Linezolid 600 MG TAB PO SCH ×2 (08:19→20:51)
[2023-06-20 04:11] LABS: Hematocrit 30.5 % (36.0-47.0); Mean Corpuscular HGB CONC 32.8 g/dL (32.0-36.0); Mean Corpuscular Hemoglobin 24.9 pg (27.0-31.0); Mean Corpuscular Volume 76.1 fl (78.0-98.0); Mean Platelet Volume 11.2 fL (7.4-10.4); Platelet Count 250 10x3/uL (130-400); RBC Distribution Width 16.3 % (11.5-14.5); Red Blood Cell (RBC) Count 4.01 mill/uL (4.20-5.40); White Blood Cell (WBC) Count 11.7 10x3/uL (4.8-10.8)
[2023-06-20 04:12] LABS: Delete Auto Diff?? YES; Manual Diff?? YES
[2023-06-20 04:34] LABS: ALT (SGPT) 54 U/L (8-55); AST (SGOT) 53 U/L (5-34); Alkaline Phosphatase 114 U/L (40-110); Anion Gap 12 mmol/L (10-20); BUN (Urea Nitrogen) 13 mg/dL (9.8-20.1); Bilirubin, Total 0.7 mg/dL (0.2-1.2); Calc. Creatinine Clearance 127 mL/min (70-130); Calcium 7.9 mg/dL (7.8-10.44); Carbon Dioxide 21 mmol/L (23-31); Chloride 110 mmol/L (98-107); Estimated GFR 94; Globulin 3.8 g/dL (2.4-3.5); Glucose 91 mg/dL (83-110); Potassium 3.7 mmol/L (3.5-5.1); Protein, Total 5.8 g/dL (5.8-8.1); Sodium 139 mmol/L (136-145)
[2023-06-20 05:57] LABS: Anisocytosis SLIGHT = 6-15 cells HPF (0-5); Burr Cells SLIGHT = 2-5 cells HPF (0-1); CellaVision Operator ID lab.sh2; Eosinophils 2 % (0-10); Large Platelets 2.9 % (0-5); Lymphocytes 17 % (21-51); Microcytosis SLIGHT = 6-15 cells HPF (0-5); Monocytes 3 % (0-10); Neutrophil 79 % (42-75); Ovalocytes MODERATE= 6-15 cells HPF (0-1); Platelet Adequacy Comment Platelets Normal; Poikilocytosis SLIGHT = 6-15 cells HPF (0-5); Polychromasia SLIGHT = 2-3 cells HPF (0-2); Smudge Cells 15.5 %; Target Cells SLIGHT = 2-5 cells HPF (0-1); Total Cell Count 103; Toxic Granulation SLIGHT
[2023-06-20] MEDS: Atorvastatin Calcium 20 MG TAB PO SCH (10:09)
[2023-06-20] MEDS: Aspirin Chewable 81 MG TAB PO SCH (10:09)
[2023-06-20] MEDS: Linezolid 600 MG TAB PO SCH ×2 (10:09→21:35)
[2023-06-20] MEDS: Sacubitril 24MG/Valsartan 26 MG TAB PO SCH ×2 (10:09→21:35)
[2023-06-20] MEDS: Cefdinir 300 MG CAP PO SCH ×2 (10:09→21:35)
[2023-06-20] MEDS: Aquaphor 3.5 oz 99 GM JAR TOP SCH (10:10)
[2023-06-20] MEDS: Spironolactone 25 MG TAB PO SCH (10:10)
[2023-06-20] MEDS: Anastrozole 1 MG TAB PO SCH (10:10)
[2023-06-20] MEDS: Empagliflozin 10 MG TAB PO SCH (10:10)
[2023-06-20] MEDS ORDERED: Ondansetron ODT 4 MG TAB PO PRN (12:14)
[2023-06-20] MEDS: Ibuprofen 600 MG TAB PO PRN (17:55)
[2023-06-21 05:45] LABS: #Eosinphils 0.2 thou/uL (0.0-0.7); #Monocytes 0.4 thou/uL (0.11-0.59); #Neutrophils 6.8 thou/uL (1.40-6.50); %Basophils 0.1 % (0.0-1.0); %Eosinophils 1.9 % (0.0-10.0); %Lymphocytes 15.8 % (21.0-51.0); %Monocytes 4.6 % (0.0-10.0); %Neutrophils 76.5 % (42.0-75.0); Hematocrit 29.7 % (36.0-47.0); Hemoglobin 9.5 g/dL (12.0-16.0); Mean Corpuscular Hemoglobin 24.4 pg (27.0-31.0); Mean Corpuscular Volume 76.3 fl (78.0-98.0); Mean Platelet Volume 10.5 fL (7.4-10.4); Platelet Count 267 10x3/uL (130-400); RBC Distribution Width 16.6 % (11.5-14.5); Red Blood Cell (RBC) Count 3.89 mill/uL (4.20-5.40); White Blood Cell (WBC) Count 8.9 10x3/uL (4.8-10.8)
[2023-06-21 06:18] LABS: ALT (SGPT) 46 U/L (8-55); AST (SGOT) 58 U/L (5-34); Albumin 1.8 g/dL (3.4-4.8); Alkaline Phosphatase 103 U/L (40-110); Anion Gap 10 mmol/L (10-20); BUN (Urea Nitrogen) 9 mg/dL (9.8-20.1); Bilirubin, Total 0.5 mg/dL (0.2-1.2); Calc. Creatinine Clearance 135 mL/min (70-130); Calcium 7.3 mg/dL (7.8-10.44); Carbon Dioxide 23 mmol/L (23-31); Chloride 109 mmol/L (98-107); Estimated GFR 95; Globulin 3.9 g/dL (2.4-3.5); Glucose 89 mg/dL (83-110); Potassium 3.6 mmol/L (3.5-5.1); Protein, Total 5.7 g/dL (5.8-8.1); Sodium 138 mmol/L (136-145)
[2023-06-21] MEDS: Anastrozole 1 MG TAB PO SCH (08:05)
[2023-06-21] MEDS: Linezolid 600 MG TAB PO SCH ×2 (08:05→23:30)
[2023-06-21] MEDS: Aquaphor 3.5 oz 99 GM JAR TOP SCH (08:05)
[2023-06-21] MEDS: Empagliflozin 10 MG TAB PO SCH (08:05)
[2023-06-21] MEDS: Sacubitril 24MG/Valsartan 26 MG TAB PO SCH ×2 (08:05→23:31)
[2023-06-21] MEDS: Aspirin Chewable 81 MG TAB PO SCH (08:05)
[2023-06-21] MEDS: Atorvastatin Calcium 20 MG TAB PO SCH (08:05)
[2023-06-21] MEDS: Spironolactone 25 MG TAB PO SCH (08:05)
[2023-06-22 04:07] LABS: #Eosinphils 0.1 thou/uL (0.0-0.7); #Monocytes 0.4 thou/uL (0.11-0.59); #Neutrophils 5.7 thou/uL (1.40-6.50); %Basophils 0.1 % (0.0-1.0); %Eosinophils 1.4 % (0.0-10.0); %Lymphocytes 15.6 % (21.0-51.0); %Monocytes 4.9 % (0.0-10.0); %Neutrophils 77.5 % (42.0-75.0); Hemoglobin 9.5 g/dL (12.0-16.0); Mean Corpuscular HGB CONC 31.7 g/dL (32.0-36.0); Mean Corpuscular Hemoglobin 24.4 pg (27.0-31.0); Mean Corpuscular Volume 76.9 fl (78.0-98.0); Mean Platelet Volume 10.3 fL (7.4-10.4); Platelet Count 280 10x3/uL (130-400); RBC Distribution Width 16.6 % (11.5-14.5); White Blood Cell (WBC) Count 7.3 10x3/uL (4.8-10.8)
[2023-06-22 04:37] LABS: ALT (SGPT) 52 U/L (8-55); AST (SGOT) 79 U/L (5-34); Albumin 1.9 g/dL (3.4-4.8); Alkaline Phosphatase 93 U/L (40-110); Anion Gap 10 mmol/L (10-20); BUN (Urea Nitrogen) 7 mg/dL (9.8-20.1); Bilirubin, Total 0.4 mg/dL (0.2-1.2); Calc. Creatinine Clearance 142 mL/min (70-130); Calcium 7.6 mg/dL (7.8-10.44); Carbon Dioxide 22 mmol/L (23-31); Chloride 110 mmol/L (98-107); Estimated GFR 96; Globulin 4.1 g/dL (2.4-3.5); Glucose 98 mg/dL (83-110); Potassium 3.7 mmol/L (3.5-5.1); Sodium 138 mmol/L (136-145)
[2023-06-22 06:47] VITALS: BMI 36.3
[2023-06-22] MEDS: Atorvastatin Calcium 20 MG TAB PO SCH (08:31)
[2023-06-22] MEDS: Linezolid 600 MG TAB PO SCH (08:31)
[2023-06-22] MEDS: Sacubitril 24MG/Valsartan 26 MG TAB PO SCH (08:32)
[2023-06-22] MEDS: Spironolactone 25 MG TAB PO SCH (08:32)
[2023-06-22] MEDS: Anastrozole 1 MG TAB PO SCH (08:32)
[2023-06-22] MEDS: Aspirin Chewable 81 MG TAB PO SCH (08:32)
[2023-06-22] MEDS: Empagliflozin 10 MG TAB PO SCH (08:32)
[2023-06-22 16:29] VITALS: BP 139/78; TEMP 97.7
[2023-06-22] MEDS: Aquaphor 3.5 oz 99 GM JAR TOP SCH (16:54)
== END 2023-06-22 17:55 | DRG 280 ==
LOC: ERS 22:13 → ERHOLD 06-14 01:33 → 2NO 06-14 03:20
PROVIDERS: ADMIT Family Medicine; ATTEND Family Medicine
PROC: 0T9B70Z Drainage of Bladder with Drainage Device, Via Natural or Artificial Opening (ICD-10-PCS; principal; 2023-06-14)
PROC: 4A043R1 Measurement of Venous Saturation, Peripheral, Percutaneous Approach (ICD-10-PCS; 2023-06-14)
DX: I11.0 Hypertensive heart disease with heart failure (principal); I50.23 Acute on chronic systolic (congestive) heart failure; I21.A1 Myocardial infarction type 2; L03.116 Cellulitis of left lower limb; I69.954 Hemiplegia and hemiparesis following unspecified cerebrovascular disease affecting left non-dominant side; N17.9 Acute kidney failure, unspecified; I42.0 Dilated cardiomyopathy; I89.0 Lymphedema, not elsewhere classified; E78.5 Hyperlipidemia, unspecified; E87.6 Hypokalemia; Z86.73 Personal history of transient ischemic attack (TIA), and cerebral infarction without residual deficits; Z79.82 Long term (current) use of aspirin; Z79.899 Other long term (current) drug therapy; Z98.890 Other specified postprocedural states; E66.01 Morbid (severe) obesity due to excess calories; D64.9 Anemia, unspecified; K80.20 Calculus of gallbladder without cholecystitis without obstruction
CPT/HCPCS: 0439T; 36415; 36416; 51702; 71045; 78472; 80053; 80061; 80202; 81001; 82728; 82805; 83036; 83550; 83605; 83735; 83880; 84145; 84443; 84484; 85025; 86140; 87040; 87077; 87086; 87186; 93005; 93306; 96365; 96366; 96368; 96372; 96375; 97139; A9560; J0692; J1650; J1940; J3370; J3370-JW; J3475; J3490; J7120